=== PATIENT | male | born 1960 | race Caucasian/White ===

== ENCOUNTER → 2016-11-04 | Outpatient (CLI) | payer OTHER ==
[~2016-11-04] MED LIST: BYDUREON P2 MG/0.65 SQ; CLEOCIN 150MG150 MG PO; GLUCOTROL5 MG PO; LISINOPRIL20 MG PO; LOPRESSOR 25 MG25 MG PO; NAPROSYN500 MG PO; NEURONTIN 400400 MG PO; NORVASC10 MG PO; PRILOSEC OTC20 MG PO
== END ==
LOC: RAD 14:46
DX: M25.562 Pain in left knee (principal)
CPT/HCPCS: 73560

== ENCOUNTER 2021-11-18 11:33 | Inpatient (IN) | payer OTHER ==
[~2021-11-18] VITALS: Ht 167.6 cm; Wt 148.8 kg
[~2021-11-18 11:33] MED LIST changes: +AMLODIPINE BESYL5 MG PO; +AUGMENTIN 875-1 EACH PO; +COMBIVENT RESPIM4 GM INH; +DEX4 GLUCOSE4 GM PO; +GABAPENTIN800 MG PO; +GLUCOTROL10 MG PO; -GLUCOTROL5 MG PO; +K-DUR TAB 10 M10 MEQ PO; +LASIX40 MG PO; +LASIX80 MG PO; +MUCINEX D ER 61 EACH PO; -NEURONTIN 400400 MG PO; +OMEPRAZOLE40 MG PO; -PRILOSEC OTC20 MG PO; +SPIRIVA HANDIH18 MCG INH; +SYMBICORT 16010.2 GM INH; +ZESTRIL2.5 MG PO
[2021-11-18 13:45] LABS: HEMOGLOBIN 13.1 gm/dl (14.0-17.5); RED BLOOD COUNT 4.82 M/UL (4.20-5.50); WHITE BLOOD COUNT 16.9 K/UL (4.5-11.0)
[2021-11-18 14:13] LABS: BUN/CREATININE RATIO 18 (0-10)
[2021-11-18] MEDS ORDERED: LANTUS SOL100 UNIT/1 SQ (16:21)
[2021-11-18] MEDS ORDERED: AMLODIPINE BESY10 MG PO (16:21)
[2021-11-18] MEDS ORDERED: NAPROXEN500 MG PO (16:21)
[2021-11-18] MEDS ORDERED: SILVER SULFADIA85 GM TOP (16:22)
[2021-11-18] MEDS ORDERED: NOVOLOG FL100 UNIT/1 SQ (16:22)
[2021-11-18] MEDS ORDERED: METOPROLOL TART25 MG PO (16:23)
[2021-11-18] MEDS ORDERED: JANUVIA100 MG PO (16:23)
[2021-11-18] MEDS ORDERED: PROAIR HFA8.5 GM INH (16:23)
[2021-11-18 17:38] LABS: BUN/CREATININE RATIO 18 (0-10)
[2021-11-19 03:19] LABS: CANDIDA ALBICANS Not Detected (Negative); CANDIDA KRUSEI Not Detected (Negative); CANDIDA TROPICALIS Not Detected (Negative); ESCHERICHIA COLI Not Detected (Negative); HAEMOPHILUS INFLUENZAE Not Detected (Negative); KLEBSIELLA OXYTOCA Not Detected (Negative); KLEBSIELLA PNEUMONIAE Not Detected (Negative); KPC-CARBAPENEM-RESISTANCE GENE Not Detected (Negative); PROTEUS Not Detected (Negative); PSEUDOMONAS AERUGINOSA Not Detected (Negative); SERRATIA MARCESANS Not Detected (Negative); STAPHYLOCOCCUS Not Detected (Negative); STAPHYLOCOCCUS AUREUS Not Detected (Negative); STREP AGALACTIAE (GROUP B) Not Detected (Negative); STREP PYOGENES (GROUP A) Not Detected (Negative); vanA/B (VANCOMYCIN RESIST GENE Not Detected (Negative)
[2021-11-19 04:23] LABS: HEMOGLOBIN 12.1 gm/dl (14.0-17.5); RED BLOOD COUNT 4.48 M/UL (4.20-5.50); WHITE BLOOD COUNT 16.9 K/UL (4.5-11.0)
[2021-11-19 04:39] LABS: STREPTOCOCCUS DETECTED (Negative)
[2021-11-20 03:04] LABS: HEMOGLOBIN 11.6 gm/dl (14.0-17.5); RED BLOOD COUNT 4.17 M/UL (4.20-5.50); WHITE BLOOD COUNT 21.1 K/UL (4.5-11.0)
[2021-11-20 14:17] LABS: HBSAG SCREEN Negative (Negative); HEP A AB, IGM Negative (Negative); HEP B CORE AB, IGM Negative (Negative); HEP C VIRUS AB <0.1 (0.0-0.9)
[2021-11-21 03:29] LABS: HEMOGLOBIN 11.6 gm/dl (14.0-17.5); RED BLOOD COUNT 4.27 M/UL (4.20-5.50); WHITE BLOOD COUNT 24.1 K/UL (4.5-11.0)
[2021-11-21 10:16] LABS: ANTISTREPTOLYSIN O AB 258.3 IU/mL (0.0-200.0); COMPLEMENT C3, SERUM 154 mg/dL (82-167); COMPLEMENT C4, SERUM 29 mg/dL (12-38)
[2021-11-21 11:16] LABS: HBSAG SCREEN Negative (Negative); HEP B CORE AB, TOT Negative (Negative); HEP C VIRUS AB <0.1 (0.0-0.9)
[2021-11-21 13:11] LABS: ANTI-DSDNA ANTIBODIES <1 IU/mL (0-9)
[2021-11-21 14:12] LABS: A/G RATIO 0.5 (0.7-1.7); ALBUMIN 2.1 g/dL (2.9-4.4); ALPHA-1-GLOBULIN 0.7 g/dL (0.0-0.4); ALPHA-2-GLOBULIN 1.3 g/dL (0.4-1.0); BETA GLOBULIN 1.2 g/dL (0.7-1.3); GLOBULIN, TOTAL 4.3 g/dL (2.2-3.9); IMMUNOGLOBULIN A, QN, SERUM 253 mg/dL (61-437); IMMUNOGLOBULIN G, QN, SERUM 1066 mg/dL (603-1613); IMMUNOGLOBULIN M, QN, SERUM 57 mg/dL (20-172); M-SPIKE 0.3 g/dL (Not Observed); PROTEIN, TOTAL, SERUM 6.4 g/dL (6.0-8.5)
[2021-11-21 14:15] LABS: HEMOGLOBIN 10.8 gm/dl (14.0-17.5); WHITE BLOOD COUNT 19.5 K/UL (4.5-11.0)
--- NOTE | 2021-11-21 14:23 | NUR ---
1400 Bladder Scan done as ordered. 280ml urine noted on scan. #16FR Hernandez catheter inserted using sterile technique. 300ml of clear yellow urine return noted. Patient tolerated well.
[2021-11-22 05:16] LABS: HEMOGLOBIN 10.5 gm/dl (14.0-17.5); RED BLOOD COUNT 3.92 M/UL (4.20-5.50)
[2021-11-22 05:17] LABS: WHITE BLOOD COUNT 14.3 K/UL (4.5-11.0)
[2021-11-22 12:09] LABS: ATYPICAL PANCA <1:20 titer (Neg:<1:20); CYTOPLASMIC (C-ANCA) <1:20 titer (Neg:<1:20); PERINUCLEAR (P-ANCA) <1:20 titer (Neg:<1:20)
--- NOTE | 2021-11-22 23:00 | NUR ---
Telemetry notified me that patient's oxygen saturation was staying in the mid 80s. Patient on 5L nasal cannula and was previously sating in the 90s. Auscultated patient's lungs and heard crackles at the upper lobes bilaterally. Patient had normal saline going at 100mL/hr. Notified Dr. Villavicencio and he said to stop fluids and titrate oxygen PRN. He also ordered an ABG. Notified Respiratory to bring a high flow nasal cannula. Patient was placed on high flow nasal cannula and still was sating in the mid 80s. I asked respiratory to bring an Airvo. Telemetry notified me and said that patient was having bundle switches. Dr. Villavicencio notified of rhythm change and no new orders. At 2320, telemetry notified me and said that the patient was bradycardic with a HR of 42. Notified Dr. Villavicencio at this time I was going to call a rapid response. Rapid response called at 2322. On the monitor, it appeared that the patient had a pulse, but no pulse could be palpated. Patient was in pulseless electrical activity. Pretty de la o called at 2324. See code blue sheet for code info.
--- NOTE | 2021-11-23 00:35 | NUR ---
REANNA notified of patient , spoke with Rose Lee [phone] and she said that patient was not a possible canidate for donation.
--- NOTE | 2021-11-28 19:09 | NUR ---
PT DEVELOPED A FEVER. I ASKED THE PATTERN WEAVER TO RECHECK AND REMOVE ALL BLANKETS. UNABLE TO PROVIDE PT PO TYLENOL DUE TO LETHARGY AND THE INCREASED RISK OF ASPIRATION. PT CONDITION WAS MONITORED WITH RECHECK OF TEMPERATURE THAT DID GO DOWN. PT REMAINED LETHARGIC FOR SEVERAL HOURS AFTER LUNCH. PT WOULD ONLY OPEN HIS EYES FOR A FEW SECONDS AFTER STERNAL RUB PERFORMED. WAS WITH THE PT AT BEDSIDE.
--- NOTE | 2021-12-12 07:43 | NUR ---
SPOKE WITH DR. LARA ON HIS ROUND ON THE FLOOR. ADVISED THE PHYSICIAN OF THE PT'S STATUS AND BEING LETHARGIC AFTER LUNCH. ADDITIONALLY, DISCUSSED WITH DR. LARA THAT THE TELEGRAPH INSTALLER HAS ALREADY SPOKEN TO THE PT AND THAT MORNING REGARDING HIS LAB RESULTS. EXPLAINED TO DR. LARA THAT THE PT WILL BE UNDERGOING ADDITIONAL TESTS FOR LUPUS AND POSSIBLE MULTIPLE MYELOMA LABS SHOWED IRREGULARITIY. NO NEW ORDERS WERE PROVIDED AT THIS TIME. ACCORDING TO THE SECURITY CLERK NURSE, QUINTEN, PT HAS BEEN LETHARGIC ON AND OFF THROUGHOUT THE PREVIOUS DAY AND NIGHT. WELL, THE PT'S EXPLAINED THAT "ANGI DOES THIS AT HOME AND SOMETIMES I HAVE TO SHAKE HIS GOOD LEG HARD TO WAKE HIM UP." CONTINUED TO MONITOR THE PT ON HIS MONITOR AND IN THE ROOM THROUGHOUT THE DAY. AT TIMES PT WOULD WAKE UP BUT ONLY KEPT HIS EYES OPEN NO MORE THAN 20-30 SECONDS. ADVISED THE ONCOMING SECURITY CLERK NURSE MARQUISE OF THE PT'S STATUS AND THE NEW TESTS THAT WERE GOING TO BE PERFORMED ACCORDING TO NEPHROLOGY.
== END 2021-11-23 00:07 | disposition expired | DRG 871 ==
LOC: ER1 11:33 → CDU 16:41 → M/S 16:41 → CCU 11-23 00:03
PROVIDERS: Internal Medicine Nephrology; Physician Assistant; ADMIT Internal Medicine
PROC: 3E03329 Introduction of Other Anti-infective into Peripheral Vein, Percutaneous Approach (ICD-10-PCS; principal; 2021-11-18)
PROC: B24BZZZ Ultrasonography of Heart with Aorta (ICD-10-PCS; 2021-11-19)
PROC: 5A12012 Performance of Cardiac Output, Single, Manual (ICD-10-PCS; 2021-11-23)
PROC: 0BH17EZ Insertion of Endotracheal Airway into Trachea, Via Natural or Artificial Opening (ICD-10-PCS; 2021-11-23)
PROC: 5A0935A Assistance with Respiratory Ventilation, Less than 24 Consecutive Hours, High Flow/Velocity Cannula (ICD-10-PCS; 2021-11-23)
DX: A41.9 Sepsis, unspecified organism (principal); J96.01 Acute respiratory failure with hypoxia; I50.33 Acute on chronic diastolic (congestive) heart failure; Z20.822 Contact with and (suspected) exposure to COVID-19; J18.9 Pneumonia, unspecified organism; N17.0 Acute kidney failure with tubular necrosis; I46.9 Cardiac arrest, cause unspecified; I13.0 Hypertensive heart and chronic kidney disease with heart failure and stage 1 through stage 4 chronic kidney disease, or unspecified chronic kidney disease; E87.1 Hypo-osmolality and hyponatremia; L03.115 Cellulitis of right lower limb; C90.00 Multiple myeloma not having achieved remission; J44.0 Chronic obstructive pulmonary disease with (acute) lower respiratory infection; Z68.42 Body mass index [BMI] 45.0-49.9, adult; R29.6 Repeated falls; G47.33 Obstructive sleep apnea (adult) (pediatric); M17.12 Unilateral primary osteoarthritis, left knee; S40.012A Contusion of left shoulder, initial encounter; T50.2X5A Adverse effect of carbonic-anhydrase inhibitors, benzothiadiazides and other diuretics, initial encounter; R65.20 Severe sepsis without septic shock; M25.552 Pain in left hip; N18.30 Chronic kidney disease, stage 3 unspecified; M25.462 Effusion, left knee; E11.22 Type 2 diabetes mellitus with diabetic chronic kidney disease; R94.5 Abnormal results of liver function studies; R74.01 Elevation of levels of liver transaminase levels; E66.01 Morbid (severe) obesity due to excess calories; W18.30XA Fall on same level, unspecified, initial encounter; Z79.4 Long term (current) use of insulin; Y92.009 Unspecified place in unspecified non-institutional (private) residence as the place of occurrence of the external cause; Z98.890 Other specified postprocedural states; Z82.49 Family history of ischemic heart disease and other diseases of the circulatory system; Z80.1 Family history of malignant neoplasm of trachea, bronchus and lung; Z71.6 Tobacco abuse counseling; I25.2 Old myocardial infarction
CPT/HCPCS: ECHO; 0240U; 31500; 36415; 36600; 70450; 71045; 73030; 73502; 73564; 80048; 80053; 80074; 81001; 82436; 82533; 82550; 82553; 82570; 82784; 82803; 82962; 83520; 83605; 83735; 83880; 83883; 83935; 84100; 84133; 84155; 84156; 84165; 84295; 84300; 84439; 84443; 84484; 84550; 85025; 85027; 86038; 86060; 86140; 86160; 86162; 86225; 86256; 86334; 86704; 86706; 86708; 86803; 87040; 87070; 87077; 87081; 87086; 87150; 87186; 87205; 87278; 87340; 89050; 92950; 93005; 93306; 93970; 94640; 94664; 94760; 96374; 96375; 97110; 97112-GP-CQ; 97162; 97165; 97530; 99285; J0456; J0696; J1650; J1940; J2185; J3370; J7030; J7070; P9047